=== PATIENT | male | born 1945 | race Caucasian/White ===

== ENCOUNTER 2018-01-12 08:29 | Emergency (ER) | payer MEDICARE ==
[2018-01-12 09:01] VITALS: BP 162/70; PULSE 67; RESP 18; TEMP 97.7; O2SAT 98
--- NOTE | 2018-01-12 09:26 | C.PDOC ---
History Of Present Illness 72 yo male, presnets with right "ear clogged" x 4 days. already on antibiotic drops per pmd. no fevers, no cough, sore throat, swimming, sick contacts. no other complaints Time Seen by Provider: 01/12/18 09:19 Chief Complaint (Nursing): ENT Problem Past Medical History Reviewed: Historical Data, Nursing Documentation, Vital Signs Vital Signs: Last Vital Signs Temp 97.7 F 01/12/18 08:49 Pulse 67 01/12/18 08:49 Resp 18 01/12/18 08:49 BP 162/70 H 01/12/18 08:49 Pulse Ox 98 01/12/18 12:07 - Medical History PMH: HTN Family History: States: Unknown Family Hx - Social History Hx Alcohol Use: No Hx Substance Use: No - Immunization History Hx Tetanus Toxoid Vaccination: No Hx Influenza Vaccination: Yes Hx Pneumococcal Vaccination: Yes Review Of Systems ENT: Positive for: Ear Pain Physical Exam - Physical Exam Appears: Well, No Acute Distress, Other (on phone speaking in nad. laughing joking) Skin: Normal Color, Warm, Dry Eye(s): bilateral: Normal Inspection, PERRL, EOMI Ear(s): Left: Normal, Right: TM Dull Nose: Normal Throat: Normal Neck: Normal Cardiovascular: Rhythm Regular Respiratory: Normal Breath Sounds Gastrointestinal/Abdominal: Normal Exam Back: Normal Inspection Extremity: Normal ROM ED Course And Treatment O2 Sat by Pulse Oximetry: 98 Medical Decision Making Medical Decision Making: suspect om. advise outpt fu for further managment. Disposition - Disposition Referrals: Mark Anthony Brower MD [Staff Provider] - Disposition: HOME/ ROUTINE Disposition Time: 09:25 Condition: STABLE Additional Instructions: please follow up with specialist. return to er with worsening symptoms or concerns. Prescriptions: Amoxicillin [Amoxil 500 mg Cap] 500 mg PO TID #21 cap Instructions: Ear Infections (Otitis Media) Forms: [employer] ([place]) - Clinical Impression Clinical Impression: Otitis media, Ear pain
== END 2018-01-12 09:35 | disposition home or self-care (01) ==
LOC: C.ER 08:29
DX: H66.91 Otitis media, unspecified, right ear (principal); H92.01 Otalgia, right ear